=== PATIENT | female | born 1990 | race Caucasian/White ===

== ENCOUNTER 2020-05-07 06:03 | Emergency (ER) | payer SELFPAY ==
[~2020-05-07] VITALS: Ht 154.9 cm; Wt 70.3 kg
[2020-05-07 06:07] VITALS: BP 133/82
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
== END 2020-05-07 06:50 | disposition home or self-care (01) ==
LOC: EDUNIT# 06:03 → ER 06:05
DX: F15.10 Other stimulant abuse, uncomplicated (principal); F41.9 Anxiety disorder, unspecified; Z88.0 Allergy status to penicillin; Z88.6 Allergy status to analgesic agent
CPT/HCPCS: 99283

== ENCOUNTER 2020-05-07 21:47 | Emergency (ER) | payer OTHER ==
[~2020-05-07] VITALS: Ht 154.9 cm; Wt 72.5 kg
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
[2020-05-07 22:15] LABS: EOSINOPHILS % (AUTO) 1 % (0-10); HEMATOCRIT 42 % (35-52); HEMOGLOBIN 13.3 G/DL (11.5-16.0); LYMPHOCYTES % (AUTO) 38 % (12-44); MEAN CORPUSCULAR HEMOGLOBIN 26 PG (25-34); MEAN CORPUSCULAR HGB CONC 32 G/DL (32-36); MEAN CORPUSCULAR VOLUME 81 FL (80-99); MEAN PLATELET VOLUME 10.4 FL (7.4-10.4); MONOCYTES % (AUTO) 9 % (0-12); NEUTROPHILS % (AUTO) 51 % (42-75); PLATELET COUNT 225 10^3/uL (130-400); WHITE BLOOD COUNT 5.2 10^3/uL (4.3-11.0)
[2020-05-07 22:16] LABS: BASOPHILS # (AUTO) 0.1 10^3/uL (0.0-0.1); BASOPHILS % (AUTO) 1 % (0-10); MONOCYTES # (AUTO) 0.5 X 10^3 (0.0-1.0); NEUTROPHILS # (AUTO) 2.6 X 10^3 (1.8-7.8)
[2020-05-07 22:35] LABS: ALANINE AMINOTRANSFERASE 34 U/L (0-55); ALBUMIN 4.6 GM/DL (3.2-4.5); ALKALINE PHOSPHATASE 102 U/L (40-136); BILIRUBIN,TOTAL 0.7 MG/DL (0.1-1.0); BUN/CREATININE RATIO 9; CALCIUM 9.4 MG/DL (8.5-10.1); CARBON DIOXIDE 25 MMOL/L (21-32); CHLORIDE 101 MMOL/L (98-107); GFR ESTIMATED 52; GLUCOSE 97 MG/DL (70-105); POTASSIUM 3.3 MMOL/L (3.6-5.0); SODIUM 140 MMOL/L (135-145); TOTAL PROTEIN 7.7 GM/DL (6.4-8.2)
[2020-05-07 22:36] LABS: ACETAMINOPHEN < 10 UG/ML (10-30); SALICYLATE < 0.3 MG/DL (5.0-20.0)
[2020-05-07 22:49] LABS: CLARITY,URINE SLIGHTLY CLOUDY; COLOR,URINE DARK YELLOW; GLUCOSE, URINE (UA) NEGATIVE (NEGATIVE); KETONES,URINE 2+ (NEGATIVE); NITRITE,URINE NEGATIVE (NEGATIVE); PROTEIN,URINE 1+ (NEGATIVE)
[2020-05-07 22:50] LABS: BILIRUBIN,URINE 2+ (NEGATIVE); LEUKOCYTE ESTERASE ,URINE TRACE (NEGATIVE)
[2020-05-07 22:51] LABS: BACTERIA,URINE FEW /HPF; WBC,URINE 25-50 /HPF
[2020-05-07 22:54] LABS: AMPHETAMINE SCREEN, URINE POSITIVE (NEGATIVE); CANNABINOID SCREEN, URINE POSITIVE (NEGATIVE); METHAMPHETAMINE SCREEN URINE S POSITIVE (NEGATIVE); OPIATE SCREEN URINE POSITIVE (NEGATIVE)
[2020-05-07 22:55] LABS: BARBITURATE SCREEN URINE NEGATIVE (NEGATIVE); BENZODIAZEPINES SCREEN URINE POSITIVE (NEGATIVE); COCAINE SCREEN URINE NEGATIVE (NEGATIVE); METHADONE STAT NEGATIVE (NEGATIVE); OXYCODONE STAT NEGATIVE (NEGATIVE); PROPOXYPHENE STAT NEGATIVE (NEGATIVE); TRICYCLIC ANTIDEPRESSANTS SCRE POSITIVE (NEGATIVE)
--- NOTE | 2020-05-08 00:19 | NUR ---
[facility] is contacted. Tracking number [id number].
--- NOTE | 2020-05-08 02:19 | NUR ---
Long from mental health called and stated they were unable to complete the screen due to patients erratic behavior. Patient was unable to engage in conversation and was making odd statements that were not relevant to the conversation. Mental health stated that they were not comfortable doing a safety plan. They recommend that the patient remains in protective police custody and be re-screened at a later time.
--- NOTE | 2020-05-08 07:00 | NUR ---
Received report from [facility]an [facility]. Pt is in [employer] Protective [employer]ust[employer] awaiting a Mental Health Screen. Attempt prior unsuccessful r/t erratic behavior and inappropriate conversation. Pt is resting in ED 3 on cart appears to have closed and no noted distress. Resp even and unlabored. Pt is in direct line of view from Nurses Station and 2 officers with [employer] present for pt. Await appropriate mentation to begin re-screening process.
--- NOTE | 2020-05-08 09:15 | NUR ---
Awoke patient and moved to ED 4, Pt appears less paranoid. Screening delay as 3 patients arrived to ED to be triaged. [employer] assisting with pt and patient wants to sleep awhile longer. No SI verbalizations noted.
--- NOTE | 2020-05-08 10:45 | NUR ---
Contacted [facility] at this time to set up screening.
[2020-05-08] MEDS ORDERED: ACETAMINOPHEN 500 MG TAB (TYLENOL) PO STA (11:00)
--- NOTE | 2020-05-08 11:23 | NUR ---
Patient began screening with Julianne with Mental Health at this time.
--- NOTE | 2020-05-08 11:40 | NUR ---
Screening has completed and Julianne has spoken with Law Enforcement [employer] and with this RN. Plan is for Safety Plan with discharge to friend of patient's.
[2020-05-08 12:20] VITALS: BP 115/76
--- NOTE | 2020-05-08 12:20 | NUR ---
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 Pt has signed her Safety Plan contract and verbalizes understanding of contacts or phone numbers in a crisis need. Pt reviewed ED discharge instructions and verbalizes understanding to follow through with the Safety Plan contract goals. Signed Safety Plan was faxed back to [facility] screener Julianne.
== END 2020-05-08 12:20 | disposition home or self-care (01) ==
LOC: EDUNIT# 21:47 → ER FS 21:48
DX: F15.10 Other stimulant abuse, uncomplicated (principal); F29 Unspecified psychosis not due to a substance or known physiological condition; Z88.0 Allergy status to penicillin; Z88.6 Allergy status to analgesic agent
CPT/HCPCS: 36415; 80053; 80306; 81000; 85025; 87088; 99283; G0480 ×3; 80320; 80329